=== PATIENT | male | born 1975 | race Two or more races ===

== ENCOUNTER 2023-01-18 03:57 | Emergency (ER) | payer MEDICAID, OTHER | END 2023-01-18 05:21 | disposition left against medical advice (07) | LOC: ER 03:57 | DX: T16.1XXA Foreign body in right ear, initial encounter (principal); Z53.21 Procedure and treatment not carried out due to patient leaving prior to being seen by health care provider; Y92.89 Other specified places as the place of occurrence of the external cause ==